=== PATIENT | female | born 1960 | race African-American/Black ===

== ENCOUNTER 2018-11-15 09:13 | Inpatient (IN) | payer OTHER ==
[2018-11-15] MEDS: ONDANSETRON 4 MG INJ IV ×2 (09:42→12:27)
[2018-11-15] MEDS: morphine 4 MG/ML VIAL IV (09:42)
[2018-11-15 09:43] LABS: ADD MAN DIFF? NO
[2018-11-15] MEDS: ASPIRIN 81 MG TAB PO (09:43)
[2018-11-15] MEDS: SOD CHLORIDE 0.9% 1,000 ML IV ×2 (09:43→17:43)
[2018-11-15 09:46] LABS: BASOPHILS % 0.4 % (0.0-2.0); EOSINOPHILS % 0.1 % (0.0-7.0); HEMATOCRIT 42.7 % (37.0-47.0); HEMOGLOBIN 13.8 g/dl (12.0-16.0); LYMPHOCYTES # 1.6 10^3/ul (0.8-2.9); LYMPHOCYTES % 18.1 % (15.0-51.0); MEAN CORPUSCULAR HEMOGLOBIN 27.9 pg (29.0-33.0); MEAN CORPUSCULAR HGB CONC 32.3 g/dl (32.0-37.0); MEAN CORPUSCULAR VOLUME 86.3 fl (82.0-101.0); MEAN PLATELET VOLUME 9.7 fl (7.4-10.4); MONOCYTE # 0.3 10^3/ul (0.3-0.9); MONOCYTES % 3.8 % (0.0-11.0); NEUTROPHILS % 77.4 % (39.0-77.0); PLATELET COUNT 249 10^3/UL (140-415); RED BLOOD COUNT 4.95 10^6/ul (4.20-5.40); RED CELL DISTRIBUTION WIDTH 13.2 % (11.5-14.5)
[2018-11-15 10:05] LABS: INR 1.01; PROTIME 13.4 Sec (11.9-14.9)
[2018-11-15 10:06] LABS: PARTIAL THROMBOPLASTIN TIME 27.6 Sec (23.0-35.0)
[2018-11-15 10:10] LABS: ALANINE AMINOTRANSFERASE 22 IU/L (13-69); ALBUMIN/GLOBULIN RATIO 1.11; ALKALINE PHOSPHATASE 105 IU/L (42-121); ANION GAP 8 (5-13); ASPARTATE AMINO TRANSFERASE 51 IU/L (15-46); BILIRUBIN,INDIRECT 0.5 mg/dl (0-1.1); BILIRUBIN,TOTAL 0.5 mg/dl (0.2-1.3); BLOOD UREA NITROGEN 18 mg/dl (7-20); CALCIUM 9.4 mg/dl (8.4-10.2); CARBON DIOXIDE 24 mmol/L (21-31); CHLORIDE 107 mmol/L (97-110); CHOL/HDL RATIO 3.4 RATIO; CHOLESTEROL 151 mg/dl (100-200); CREATINE KINASE 433 IU/L (23-200); CREATININE 0.86 mg/dl (0.44-1.00); Estimated GFR > 60 mL/min (>60); GLUCOSE 195 mg/dl (70-220); HDL CHOLESTEROL 44 mg/dl (37-92); LDL CHOLESTEROL,CALCULATED 95 mg/dl; LIPASE 47 U/L (23-300); SODIUM 139 mmol/L (135-144); TOTAL PROTEIN 7.6 g/dl (6.1-8.1); TRIGLYCERIDES 60 mg/dl (0-149)
[2018-11-15 10:18] LABS: CK INDEX 8.9
[2018-11-15 10:48] LABS: B-TYPE NATRIURETIC PEPTIDE 681 PG/ML (0-125)
[2018-11-15] MEDS: ALBUTEROL 0.5% (NEB) 2.5 MG/0.5 ML AMP INH (11:47)
[2018-11-15] MEDS: IPRATROPIUM (NEB) 0.5 MG/2.5 ML AMP INH (11:48)
[2018-11-15] MEDS: HEPARIN 25000 UNITS/250 ML 250 ML IV (11:54)
[2018-11-15] MEDS: HYDROmorphONE 1 MG/ML SYG IV (12:27)
[2018-11-15] MEDS: DIPHENHYDRAMINE 50 MG CAP PO (12:30)
[2018-11-15] MEDS ORDERED: morphine 2 MG INJ IV ×2 (12:30→15:00)
[2018-11-15] MEDS ORDERED: ONDANSETRON 4 MG INJ IV ×2 (12:30→15:00)
[2018-11-15] MEDS ORDERED: ATORVASTATIN 80 MG TAB PO ×3 (12:30→21:00)
[2018-11-15] MEDS ORDERED: ACETAMINOPHEN 325 MG TAB PO (12:30)
[2018-11-15] MEDS ORDERED: NACL 0.9% 3 ML SYG IV (12:30)
[2018-11-15] MEDS ORDERED: ACETAMINOPHEN 650 MG SUPP PR (12:30)
[2018-11-15] MEDS: IOHEXOL 100 ML (12:34)
[2018-11-15] MEDS: SOD CHLORIDE 0.9% 100 ML (12:34)
[2018-11-15] MEDS ORDERED: GLUCOSE GEL 15 GRAM TUBE PO ×2 (13:00)
[2018-11-15] MEDS ORDERED: GLUCOSE GEL 15 GRAM TUBE BUCCAL (13:00)
[2018-11-15] MEDS ORDERED: GLUCAGON 1 MG INJ IM (13:00)
[2018-11-15] MEDS ORDERED: DEXTROSE 50% 50 ML SYRINGE IV ×2 (13:00)
[2018-11-15] MEDS ORDERED: LIDOCAINE 1% (MDV) 20 ML INJ (13:08)
[2018-11-15] MEDS ORDERED: IODIXANOL LOCM 100 ML BTL ×2 (13:08→14:39)
[2018-11-15] MEDS ORDERED: HEPARIN 1000 UNITS/ML 10 ML INJ (13:22)
[2018-11-15] MEDS ORDERED: NITROGLYCERIN (IC) 100 MCG/ML INJ (13:23)
[2018-11-15] MEDS ORDERED: VERAPAMIL 5 MG INJ (13:23)
[2018-11-15] MEDS ORDERED: MIDAZOLAM 1 MG/ML 2 ML INJ (13:45)
[2018-11-15] MEDS ORDERED: TICAGRELOR 90 MG TABLET (14:44)
[2018-11-15] MEDS ORDERED: AL HYDROX/MG HYDROX/SIMETH 30 ML CUP PO (15:00)
[2018-11-15] MEDS: METOPROLOL 25 MG TAB PO ×2 (15:32→20:41)
[2018-11-15] MEDS: DIAZEPAM 5 MG TAB PO (15:33)
[2018-11-15] MEDS: INSULIN ASPART [NOVOLOG] 3 ML PEN SC ×3 (15:33→20:38)
[2018-11-15 17:12] LABS: CREATINE KINASE 3161 IU/L (23-200)
[2018-11-15] MEDS: ATORVASTATIN 80 MG TAB PO (17:20)
[2018-11-15] MEDS: LOSARTAN 25 MG TAB PO ×2 (17:20→20:40)
[2018-11-15 17:29] LABS: CK INDEX 17.3
[2018-11-15 18:34] LABS: PARTIAL THROMBOPLASTIN TIME > 180.0 Sec (23.0-35.0)
[2018-11-15] MEDS: FAMOTIDINE 20 MG TAB PO (20:41)
[2018-11-15] MEDS: TICAGRELOR 90 MG TABLET PO (20:44)
[2018-11-15] MEDS: LORAZEPAM 0.5 MG TAB PO (22:22)
[2018-11-15 22:23] LABS: CREATINE KINASE 5579 IU/L (23-200)
[2018-11-15 22:34] LABS: CK INDEX 13.4
[2018-11-15 23:23] LABS: AADO2 Arterial 142.6 mmHg (7.0-24.0); Allen Test ACCEPTAB; Arterial Base Excess -1.3 mmol/L (-3.0-3); Arterial HCO3 23.4 mmol/L (22.0-26.0); Arterial MetHb 0.1 % (0.0-1.5); Arterial pCO2 39.5 mmhg (35-45); MODE NASAL CANNULA; Site Right Brachial
[2018-11-15] MEDS ORDERED: NITROGLYCERIN (SL) 0.4 MG TAB (23:31)
[2018-11-15] MEDS: ALBUTEROL/IPRATROPIUM (NEB) 3 ML AMP HHN (23:43)
[2018-11-15] MEDS: FUROSEMIDE 40 MG INJ IV (23:56)
[2018-11-15] MEDS: NITROGLYCERIN (SL) 0.4 MG TAB SL (23:57)
[2018-11-16] MEDS: INSULIN ASPART [NOVOLOG] 3 ML PEN SC ×4 (01:38→13:00)
[2018-11-16] MEDS: ACCU-CHEK XX (01:40)
[2018-11-16] MEDS: SOD CHLORIDE 0.9% 1,000 ML IV ×2 (01:40→05:39)
[2018-11-16 05:02] LABS: ADD MAN DIFF? NO
[2018-11-16 05:10] LABS: BASOPHILS % 0.3 % (0.0-2.0); EOSINOPHILS % 0.2 % (0.0-7.0); HEMATOCRIT 47.5 % (37.0-47.0); HEMOGLOBIN 14.9 g/dl (12.0-16.0); LYMPHOCYTES # 1.6 10^3/ul (0.8-2.9); LYMPHOCYTES % 15.9 % (15.0-51.0); MEAN CORPUSCULAR HEMOGLOBIN 27.6 pg (29.0-33.0); MEAN CORPUSCULAR HGB CONC 31.4 g/dl (32.0-37.0); MEAN PLATELET VOLUME 9.9 fl (7.4-10.4); MONOCYTE # 0.7 10^3/ul (0.3-0.9); MONOCYTES % 7.1 % (0.0-11.0); NEUTROPHIL # 7.6 10^3/ul (1.6-7.5); NEUTROPHILS % 76.3 % (39.0-77.0); PLATELET COUNT 287 10^3/UL (140-415); RED CELL DISTRIBUTION WIDTH 13.2 % (11.5-14.5)
[2018-11-16 05:10] LABS: WHITE BLOOD COUNT 9.9 10^3/ul (4.8-10.8)
[2018-11-16 05:49] LABS: ALANINE AMINOTRANSFERASE 79 IU/L (13-69); ALBUMIN 3.8 g/dl (3.3-4.9); ALBUMIN/GLOBULIN RATIO 1.31; ALKALINE PHOSPHATASE 88 IU/L (42-121); ANION GAP 6 (5-13); ASPARTATE AMINO TRANSFERASE 621 IU/L (15-46); BILIRUBIN,INDIRECT 0.7 mg/dl (0-1.1); BILIRUBIN,TOTAL 0.7 mg/dl (0.2-1.3); BLOOD UREA NITROGEN 18 mg/dl (7-20); CALCIUM 9.8 mg/dl (8.4-10.2); CARBON DIOXIDE 32 mmol/L (21-31); CHLORIDE 104 mmol/L (97-110); CHOL/HDL RATIO 3.3 RATIO; CHOLESTEROL 163 mg/dl (100-200); CREATININE 1.29 mg/dl (0.44-1.00); Estimated GFR 52 mL/min (>60); GLUCOSE 145 mg/dl (70-220); HDL CHOLESTEROL 48 mg/dl (37-92); LDL CHOLESTEROL,CALCULATED 98 mg/dl; MAGNESIUM 1.9 mg/dl (1.7-2.5); PHOSPHORUS 4.1 mg/dl (2.5-4.9); POTASSIUM 4.3 mmol/L (3.5-5.1); SODIUM 142 mmol/L (135-144); TOTAL PROTEIN 6.7 g/dl (6.1-8.1); TRIGLYCERIDES 84 mg/dl (0-149)
[2018-11-16 07:06] LABS: HEMOGLOBIN A1C 6.7 % (0-5.9)
[2018-11-16] MEDS ORDERED: ASPIRIN (EC) 81 MG TAB PO (09:00)
[2018-11-16] MEDS: ASPIRIN 81 MG TAB PO (09:20)
[2018-11-16] MEDS: FAMOTIDINE 20 MG TAB PO (09:21)
[2018-11-16] MEDS: METOPROLOL 25 MG TAB PO (09:21)
[2018-11-16] MEDS: LOSARTAN 25 MG TAB PO (09:21)
[2018-11-16] MEDS: TICAGRELOR 90 MG TABLET PO (09:22)
[2018-11-16] MEDS ORDERED: ALPRAZOLAM 0.5 MG TAB PO (11:00)
[2018-11-16] MEDS: IPRATROPIUM (NEB) 0.5 MG/2.5 ML AMP HHN (14:00)
[2018-11-16] MEDS: LEVALBUTEROL (NEB) 1.25 MG/0.5 ML AMP HHN (14:37)
[2018-11-16] MEDS ORDERED: ATORVASTATIN 80 MG TAB PO (21:00)
== END 2018-11-16 16:50 | disposition short-term general hospital (02) | DRG 246 ==
LOC: E/R 09:13 → CCL 13:30 → SDS 13:30 → CCL 15:13 → ICU 15:15
PROC: 027034Z Dilation of Coronary Artery, One Artery with Drug-eluting Intraluminal Device, Percutaneous Approach (ICD-10-PCS; principal; 2018-11-15 13:31)
PROC: 4A023N7 Measurement of Cardiac Sampling and Pressure, Left Heart, Percutaneous Approach (ICD-10-PCS; 2018-11-15 13:31)
PROC: B211YZZ Fluoroscopy of Multiple Coronary Arteries using Other Contrast (ICD-10-PCS; 2018-11-15 13:31)
PROC: B215YZZ Fluoroscopy of Left Heart using Other Contrast (ICD-10-PCS; 2018-11-15 13:31)
DX: I21.4 Non-ST elevation (NSTEMI) myocardial infarction (principal); I50.41 Acute combined systolic (congestive) and diastolic (congestive) heart failure; I25.10 Atherosclerotic heart disease of native coronary artery without angina pectoris; E66.01 Morbid (severe) obesity due to excess calories; F17.200 Nicotine dependence, unspecified, uncomplicated; I27.20 Pulmonary hypertension, unspecified; E11.9 Type 2 diabetes mellitus without complications; Z68.41 Body mass index [BMI] 40.0-44.9, adult
CPT/HCPCS: 36415; 36600; 71045; 71275; 80053; 80061; 82550; 82553; 82803; 82962; 83036; 83690; 83735; 83880; 84100; 84443; 84484; 85025; 85610; 85730; 86850; 86900; 86901; 87081; 92928; 93005; 93306; 93458; 94640; 94664; 96374; 96375; 99285-25

== ENCOUNTER 2019-01-12 15:05 | Emergency (ER) | payer OTHER ==
[2019-01-12 19:02] LABS: ADD MAN DIFF? NO
[2019-01-12 19:04] LABS: BASOPHILS % 0.3 % (0.0-2.0); EOSINOPHILS # 0.1 10^3/ul (0.0-0.5); EOSINOPHILS % 1.4 % (0.0-7.0); HEMATOCRIT 39.1 % (37.0-47.0); HEMOGLOBIN 12.2 g/dl (12.0-16.0); LYMPHOCYTES # 2.3 10^3/ul (0.8-2.9); LYMPHOCYTES % 35.6 % (15.0-51.0); MEAN CORPUSCULAR HEMOGLOBIN 27.2 pg (29.0-33.0); MEAN CORPUSCULAR HGB CONC 31.2 g/dl (32.0-37.0); MEAN CORPUSCULAR VOLUME 87.3 fl (82.0-101.0); MEAN PLATELET VOLUME 9.8 fl (7.4-10.4); MONOCYTE # 0.4 10^3/ul (0.3-0.9); MONOCYTES % 6.3 % (0.0-11.0); NEUTROPHIL # 3.7 10^3/ul (1.6-7.5); NEUTROPHILS % 56.2 % (39.0-77.0); PLATELET COUNT 294 10^3/UL (140-415); RED BLOOD COUNT 4.48 10^6/ul (4.20-5.40); RED CELL DISTRIBUTION WIDTH 14.6 % (11.5-14.5)
[2019-01-12 19:04] LABS: WHITE BLOOD COUNT 6.5 10^3/ul (4.8-10.8)
[2019-01-12] MEDS: NITROGLYCERIN (SL) 0.4 MG TAB SL (19:06)
[2019-01-12] MEDS: ASPIRIN 81 MG TAB PO (19:06)
[2019-01-12] MEDS: NITROGLYCERIN 2% 1 GM OINT PKT TD (19:06)
[2019-01-12 19:16] LABS: UR BILIRUBIN (Dip) NEGATIVE (NEGATIVE); UR BLOOD (Dip) NEGATIVE (NEGATIVE); UR CLARITY CLEAR (CLEAR); UR COLOR YELLOW (YELLOW); UR GLUCOSE (Dip) NEGATIVE (NEGATIVE); UR KETONES (Dip) NEGATIVE (NEGATIVE); UR LEUKOCYTE ESTERASE (Dip) NEGATIVE Leu/ul (NEGATIVE); UR NITRITE (Dip) NEGATIVE (NEGATIVE); UR SPECIFIC GRAVITY (Dip) 1.031 (1.003-1.030); UR TOTAL PROTEIN (Dip) 1+ mg/dl (NEGATIVE); UR UROBILINOGEN (Dip) 1+ mg/dL (NEGATIVE)
[2019-01-12 19:17] LABS: ADD UMIC YES; UR ASCORBIC ACID NEGATIVE (NEGATIVE); UR MUCUS MODERATE /HPF (NONE SEEN); UR RBC 1 /HPF (0-5); UR WBC 2 /HPF (0-5)
[2019-01-12 19:25] LABS: ALANINE AMINOTRANSFERASE 65 IU/L (13-69); ALBUMIN 3.7 g/dl (3.3-4.9); ALBUMIN/GLOBULIN RATIO 1.23; ALKALINE PHOSPHATASE 70 IU/L (42-121); ANION GAP 9 (5-13); ASPARTATE AMINO TRANSFERASE 35 IU/L (15-46); BILIRUBIN,INDIRECT 0.8 mg/dl (0-1.1); BILIRUBIN,TOTAL 0.8 mg/dl (0.2-1.3); BLOOD UREA NITROGEN 22 mg/dl (7-20); CALCIUM 9.2 mg/dl (8.4-10.2); CARBON DIOXIDE 26 mmol/L (21-31); CHLORIDE 110 mmol/L (97-110); Estimated GFR > 60 mL/min (>60); GLUCOSE 124 mg/dl (70-220); LIPASE 51 U/L (23-300); POTASSIUM 3.6 mmol/L (3.5-5.1); SODIUM 145 mmol/L (135-144); TOTAL PROTEIN 6.7 g/dl (6.1-8.1)
[2019-01-12 19:36] LABS: TROPONIN-I < 0.012 ng/ml (0.000-0.120)
[2019-01-12 21:05] LABS: B-TYPE NATRIURETIC PEPTIDE 5630 PG/ML (0-125)
[2019-01-12] MEDS: FUROSEMIDE 40 MG INJ IV (21:17)
== END 2019-01-12 21:59 | disposition short-term general hospital (02) ==
LOC: E/R 21:59
DX: R10.13 Epigastric pain (principal); R06.00 Dyspnea, unspecified; I10 Essential (primary) hypertension; E11.9 Type 2 diabetes mellitus without complications; Z87.891 Personal history of nicotine dependence
CPT/HCPCS: 36415; 71045; 80053; 81001; 83690; 83880; 84484; 85025; 93005; 96374; 99285-25